=== PATIENT | female | born 1965 | race Caucasian/White ===

== ENCOUNTER 2023-05-16 08:05 | Day surgery (SDC) | payer OTHER ==
[~2023-05-16] VITALS: Ht 157.5 cm; Wt 68.0 kg
[2023-05-16] MEDS ORDERED: fentaNYL citrate 0.05 MG/ML VIAL ONE (10:02)
[2023-05-16] MEDS ORDERED: MIDAZOLAM 2 MG/2 ML VIAL ONE ×2 (10:02→11:12)
== END 2023-05-16 13:01 | disposition home or self-care (01) ==
LOC: MOR 08:05 → MMU 08:05 → MOR 13:01
PROVIDERS: ATTEND Internal Medicine Gastroenterology
DX: Z12.11 Encounter for screening for malignant neoplasm of colon (principal); K63.5 Polyp of colon; R11.2 Nausea with vomiting, unspecified; I10 Essential (primary) hypertension; Z80.3 Family history of malignant neoplasm of breast
CPT/HCPCS: 36415; 43239; 45385; 86677; J2250; J3010